=== PATIENT | female | born 1965 | race Two or more races ===

== ENCOUNTER 2024-11-13 17:25 | Emergency (ER) | payer MEDICAID ==
[~2024-11-13] VITALS: Ht 154.9 cm; Wt 95.9 kg
[2024-11-13 17:28] VITALS: BP 140/92; RESP 18; TEMP 98.7; O2SAT 98
--- NOTE | 2024-11-13 17:30 | ECG ---
[facility] Test Date: 2024-11-13 Test Time: 17:29:00 Pat Name: NURY BENITEZ Department: ED Room: Gender: F Garment Folder: juan : 1965 Requested By: LONNY BOOGIE Order Number: [id number] Reading MD: Ramirez Price Measurements Intervals [place] Rate: 110 P: 54 NH: 152 QRS: 23 QRSD: 84 T: -1 QT: 315 QTc: 427 Interpretive Statements Sinus tachycardia Probable left atrial enlargement Borderline T abnormalities, anterior leads Electronically Signed On 11-18-2024 17:58:28 PDT by Ramirez Price Please click the below link to view image of tracing.
--- NOTE | 2024-11-13 17:40 | ED.PDOC ---
HPI Comments This is a 59 year-old female who presents to the ED with a chief complaint of chest pain with associated SOB, left leg and right ankle soreness for X1 day. Patient states chest pain is a 7/10, non-radiating, with the associated feeling of "pressure". Patient denies this happening before. Patient has no further complaints at this time and otherwise denies further associated symptoms of cough, dizziness, blurred vision, N/V/D, fever, or chills. Chief Complaint: Chest Pain Time Seen by MD: 17:43 Reviewed Notes: Nurses Notes, Medications, Allergies Allergies: Coded Allergies: NO KNOWN ALLERGIES (Unverified , 11/13/24) Information Source: Patient Mode of Arrival: Ambulatory Severity: Moderate Timing: Days (1) Duration: Since onset Radiation: No Radiation Quality: Pressure Associated Signs and Symptoms: SOB, Other (left leg and right ankle soreness ) Past Medical History PAST MEDICAL HISTORY: Denies Surgical History: SERVICE CENTER SPECIALIST History: No Pertinent SERVICE CENTER SPECIALIST History Family History Family History: Family hx of heart aakash, Family hx of HTN Social History Smoker: Non-Smoker Alcohol: Denies ETOH Use Drugs: Denies Drug Use Lives In: Home Constitutional: denies: chills, diaphoresis, fatigue, fever, malaise, sweats, weakness, others EENTM: denies: blurred vision, double vision, ear bleeding, ear discharge, ear drainage, ear pain, ear ringing, eye pain, eye redness, hearing loss, mouth pain, mouth swelling, nasal discharge, nose bleeding, nose congestion, nose pain, photophobia, tearing, throat pain, throat swelling, voice changes, others Respiratory: reports: SOB at rest, shortness of breath, SOB with excertion; denies: cough, hemoptysis, orthopnea, stridor, wheezing, others Cardiovascular: reports: chest pain; denies: dizzy spells, diaphoresis, Dyspnea on exertion, edema, irregular heart beat, left arm pain, lightheadedness, palpitations, PND, syncope, others Gastrointestinal: denies: abdomen distended, abdominal pain, blood streaked bowels, constipated, diarrhea, dysphagia, difficulty swallowing, hematemesis, melena, nausea, poor appetite, poor fluid intake, rectal bleeding, rectal pain, vomiting, others Genitourinary: denies: abnormal vagina bleeding, burning, dyspareunia, dysuria, flank pain, frequency, hematuria, incontinence, pain, , vagina discharge, urgency, others Neurological: denies: dizziness, fainting, headache, left sided numbness, left sided weakness, numbness, paresthesia, pre-existing deficit, right sided numbness, right sided weakness, seizure, speech problems, tingling, tremors, weakness, others Musculoskeletal: reports: others (Left leg swelling, right ankle swelling ); denies: back pain, gout, joint pain, joint swelling, muscle pain, muscle stiffness, neck pain Integumetry: denies: bruises, change in color, change in hair/nails, dryness, laceration, lesions, lumps, rash, wounds, others Allergic/Immunocompromised: denies: Difficulty Healing, Frequent Infections, Hives, Itching, others Hematologic/Lymphatic: denies: anemia, blood clots, easy bleeding, easy bruising, swollen glands, others Endocrine: denies: excessive hunger, excessive sweating, excessive thirst, excessive urination, flushing, intolerance to cold, intolerance to heat, unexp lained weight gain, unexplained weight loss, others Psychiatric: denies: anxiety, bipolar disorder, depression, hopeless, panic disorder, schizophrenia, sleepless, suicidal, others All Other Systems: Reviewed and Negative Physical Exam General Appearance: Moderate Distress HEENT: Normal ENT Inspection, Pharynx Normal, TMs Normal Neck: Full Range of Motion, Non-Tender, Normal, Normal Inspection Respiratory: Chest Non-Tender, Lungs Clear, No Accessory Muscle Use, No Respiratory Distress, Normal Breath Sounds Cardiovascular: No Edema, No JVD, No Murmur, No Gallop, Normal Peripheral Pulses, Regular Rate/Rhythm Breast Exam: Deferred Gastrointestinal: No Organomegaly, Non Tender, No Pulsatile Mass, Normal Bowel Sounds, Soft Genitalia: Deferred Pelvic: Deferred Rectal: Deferred Extremities: No calf tenderness, Normal capillary refill, Normal inspection, Normal range of motion, Non-tender, No pedal edema Musculoskeletal : Apperance: Normal 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 Was a procedure done?: No CP Differential Dx Differential Diagnosis: A-fib, Anxiety / Panic Attack Differential Diagnosis: HTN Essential X-Ray, Labs, Meds, VS Vital Signs Date Time Temp Pulse Resp B/P (MAP) Pulse Ox O2 Delivery O2 Flow Rate FiO2 11/13/24 18:20 104 11/13/24 17:54 110 11/13/24 17:29 110 11/13/24 17:28 98.7 107 18 140/92 98 98.7 Lab Test 11/13/24 18:27 Range/Units White Blood Count 4.4 4.4-10.8 10^3/uL Red Blood Count 4.73 4.0-5.20 10^6/uL Hemoglobin 14.6 12.2-16.2 g/dL Hematocrit 41.2 36.0-46.0 % Mean Corpuscular Volume 87.0 80.0-100.0 fL Mean Corpuscular Hemoglobin 30.9 28.0-32.0 pg Mean Corpuscular Hemoglobin Concent 35.5 32.0-36.0 g/dL Red Cell Distribution Width 13.1 11.8-14.3 % Platelet Count 278 140-450 10^3/uL Mean Platelet Volume 8.0 6.9-10.8 fL Neutrophils (%) (Auto) 45.4 37.0-80.0 % Lymphocytes (%) (Auto) 42.7 10.0-50.0 % Monocytes (%) (Auto) 9.2 0.0-12.0 % Eosinophils (%) (Auto) 2.1 0.0-7.0 % Basophils (%) (Auto) 0.6 0.0-2.0 % Neutrophils # (Auto) 2.0 1.6-8.6 10 ^3/uL Lymphocytes # (Auto) 1.9 0.4-5.4 10 ^3/uL Monocytes # (Auto) 0.4 0-1.3 10 ^3/uL Eosinophils # (Auto) 0.1 0-0.8 10 ^3/uL Basophils # (Auto) 0 0-0.2 10 ^3/uL Nucleated Red Blood Cells 0.2 % D-Dimer, Quantitative 0.35 0.0-0.49 mg/L FEU Sodium Level 141 136-145 mmol/L Potassium Level 4.1 3.5-5.1 mmol/L Chloride Level 107 98-107 mmol/L Carbon Dioxide Level 25 20-31 mmol/L Anion Gap 9 5-15 Blood Urea Nitrogen 19 9-23 mg/dL Creatinine 0.90 0.550-1.02 mg/dL Glomerular Filtration Rate Calc 74 >90 mL/min BUN/Creatinine Ratio 21.1 H 10.0-20.0 Serum Glucose 95 74-106 mg/dL Calcium Level 9.5 8.7-10.4 mg/dL Troponin I High Sensitivity < 3 L </=34 ng/L Images Reviewed?: Images reviewed and evaluated by me Time of 1ST Reevaluation: 18:16 Reevaluation 1ST: Unchanged Patient Education/Counseling: Diagnosis, Treatment, Prognosis Family Education/Counseling: No Family Present SEPSIS Sepsis Screen Date sepsis recognized/suspect: Nov 13, 2024 Time Sepsis recognized/suspect: 1727 Recent Procedure: No On Antibiotic Therapy: No Respiratory Rate >20: No Heart Rate >90: Yes Temp<36 C (96.8 F) or >38.3 C: No SBP <90 or MAP <65 mmHG: No New Acute Mental Status Change: No Is the patient on CPAP, BIPAP,: No Physician Orders Troponin-I Hs (11/13/24 18:28) Troponin-I Hs (11/13/24 20:28) Electrocardigram (11/13/24 18:28) Electrocardigram (11/13/24 20:28) Chest Two Views Routine (11/13/24 17:57) Lt Lower Dvt (11/13/24 17:57) Vital Signs Date Time Temp Pulse Resp B/P (MAP) Pulse Ox O2 Delivery O2 Flow Rate FiO2 11/13/24 18:20 104 11/13/24 17:54 110 11/13/24 17:29 110 11/13/24 17:28 98.7 107 18 140/92 98 98.7 Laboratory Tests Test 11/13/24 18:27 White Blood Count 4.4 10^3/uL (4.4-10.8) Departure 1 Departure Time of Disposition: 19:45 Impression: Primary Impression: Acute coronary syndrome Disposition: 09 ADMITTED INPATIENT Admit to: [facility] Condition: Fair Critical Care Note Critical Care Time?: Yes (35 min-critical care time only) Stability Stability form required: Yes Unstable for transfer: Telemetry monitoring (Telemetry monitoring required), ED Physician Assesment (Clinical assesment) Heart Score Heart Score: Heart Score Response (Comments) Value History Slightly Suspicious 0 EKG Repolarization Disturb 1 Age 45-64 1 Risk Factors 1 or 2 risk factors 1 Troponin Normal limit 0 Total 3 I personally scribed for MARC ISBELL MD ([email or web address]) on 11/13/24 at 17:40. Elec tronically submitted by Nakia Fair ([email or web address]). I personally scribed for MARC ISBELL MD ([email or web address]) on 11/13/24 at 17:54. E lectronically submitted by Nakia Fair ([email or web address]). MARC ISBELL MD Nov 13, 2024 17:40
[2024-11-13 18:20] VITALS: PULSE 104
--- NOTE | 2024-11-13 18:25 | DVH ---
CHEST RADIOGRAPH Indication: pain Technique: Single frontal view of the chest was obtained Comparison: None FINDINGS: Lines and Tubes: None Lungs: No focal consolidation. Pleura: No effusion. No pneumothorax. Cardiomediastinal contours: Unremarkable Bones: No acute osseous abnormality. IMPRESSION: 1. No acute cardiopulmonary disease.
[2024-11-13 18:39] LABS: Hematocrit 41.2 % (36.0-46.0); Hemoglobin 14.6 g/dL (12.2-16.2); Mean Corpuscular Hemoglobin 30.9 pg (28.0-32.0); Mean Corpuscular Volume 87.0 fL (80.0-100.0); Nucleated Red Blood Cells % 0.2 %
[2024-11-13 18:45] LABS: Chloride 107 mmol/L (98-107); Potassium 4.1 mmol/L (3.5-5.1); Sodium 141 mmol/L (136-145)
[2024-11-13 18:46] LABS: Anion Gap 9 (5-15); Calcium 9.5 mg/dL (8.7-10.4); Carbon Dioxide 25 mmol/L (20-31)
[2024-11-13 18:51] LABS: BUN/Creatinine Ratio 21.1 (10.0-20.0); Blood Urea Nitrogen 19 mg/dL (9-23); Glucose 95 mg/dL (74-106)
--- NOTE | 2024-11-13 20:11 | DVH ---
LEFT lower extremity venous duplex Clinical History: pain Comparison: None Technique: Duplex Doppler evaluation of the deep venous systems of LEFT lower extremities from the common femora l veins to the popliteal veins including color Doppler and spectral/pulsed waveform analysis was perf ormed. Findings: LEFT SIDE: The common femoral vein demonstrates appropriate compressibility and waveform variability. There is compressibility/patency of the great saphenous vein at the proximal thigh. The femoral vein demonstrates appropriate compressibility and waveform variability. The deep femoral vein demonstrates appropriate compressibility and waveform variability. The popliteal vein demonstrates appropriate compressibility and waveform variability. There is normal compressibility at the tibioperoneal trunk. Impression: 1. No left femoropopliteal venous thrombosis.
[2024-11-13 20:43] LABS: Urine Protein, UAD Negative (Negative)
[2024-11-14] MEDS ORDERED: MORPHINE SULFATE INJ 2 MG/ml SYRG IV PRN
[2024-11-14] MEDS ORDERED: NITROGLYCERIN 0.4 MG SL TAB SL PRN
== END 2024-11-13 20:00 | disposition left against medical advice (07) ==
LOC: ER 17:25 → OVERFLOW 20:00 → UNDOADMIN 23:58 → OVERFLOW 23:58 → UNDODISIN 11-14 00:10
DX: I24.9 Acute ischemic heart disease, unspecified (principal); Z98.890 Other specified postprocedural states
CPT/HCPCS: 36415; 71046; 80048; 81001; 84484; 85025; 85379; 93005; 93971; 99291; G0378

== ENCOUNTER 2024-11-18 15:59 | Inpatient (IN) | payer MEDICAID ==
[~2024-11-18] VITALS: Ht 154.9 cm; Wt 95.6 kg
--- NOTE | 2024-11-18 16:07 | ECG ---
[facility] Test Date: 2024-11-18 Test Time: 16:04:45 Pat Name: NURY BENITEZ Department: Room: Gender: F [employer] Attendant: AKIRA : 1965 Requested By: BOLIVAR BOOGIE Order Number: [id number] Reading MD: Ramirez Price Measurements Intervals [place] Rate: 96 P: 66 NV: 154 QRS: 46 QRSD: 93 T: -5 QT: 349 QTc: 441 Interpretive Statements Sinus rhythm Low voltage, precordial leads Borderline abnrm T, anterolateral leads Baseline wander in lead(s) I,II,III,aVR,aVF,V4 Electronically Signed On 11-18-2024 18:28:48 PDT by Ramirez Price Please click the below link to view image of tracing.
--- NOTE | 2024-11-18 16:13 | ED.PDOC ---
HPI Comments 59 y/o F, with no prior medical history presents to the ED for CC of chest pain. Patient states, she has been experiencing substernal pressure like chest pain x4days. Patient reports, she was seen at [facility] for SS on (11/13/24) and was admitted; patient states she later AMA'd d/t "there was no horse race timer to see me". Patient relays, that she has an appointment an appointment set with her PCP for 11/22/24 however, symptoms have not yet ceased and would like to be worked up. Patient denies shortness of breath, cough, palpitations, dizziness, or headache. No other symptoms or modifying factors present at this time. Chief Complaint: Chest Pain Time Seen by MD: 16:10 Reviewed Notes: Nurses Notes, Medications, Allergies Allergies: Coded Allergies: NO KNOWN ALLERGIES (Unverified , 11/13/24) Information Source: Patient Mode of Arrival: Ambulatory Severity: Moderate Timing: Days Duration: Since onset Prehospital treatment: None Location: Substernal Radiation: No Radiation Quality: Pressure Onset: At Rest Cardiac Risk Factors: None PE Risk Factors: None History of: None Modifying Factors: Nothing Associated Signs and Symptoms: None Past Medical History PAST MEDICAL HISTORY: Denies Surgical History: PRESCHOOL ADVISER History: No Pertinent PRESCHOOL ADVISER History Family History Family History: Family hx of heart aakash, Family hx of HTN Social History Smoker: Non-Smoker Alcohol: Denies ETOH Use Drugs: Denies Drug Use Lives In: Home Constitutional: denies: chills, diaphoresis, fatigue, fever, malaise, sweats, w eakness, others EENTM: denies: blurred vision, double vision, ear bleeding, ear discharge, ear drainage, ear pain, ear ringing, eye pain, eye redness, hearing loss, mouth pain, mouth swelling, nasal discharge, nose bleeding, nose congestion, nose pain, photophobia, tearing, throat pain, throat swelling, voice changes, others Respiratory: denies: cough, hemoptysis, orthopnea, SOB at rest, shortness of breath, SOB with excertion, stridor, wheezing, others Cardiovascular: reports: chest pain; denies: dizzy spells, diaphoresis, Dyspnea on exertion, edema, irregular heart beat, left arm pain, lightheadedness, palpitations, PND, syncope, others Gastrointestinal: denies: abdomen distended, abdominal pain, blood streaked bowels, constipated, diarrhea, dysphagia, difficulty swallowing, hematemesis, melena, nausea, poor appetite, poor fluid intake, rectal bleeding, rectal pain, vomiting, others Genitourinary: denies: abnormal vagina bleeding, burning, dyspareunia, dysuria, flank pain, frequency, hematuria, incontinence, pain, , vagina discharge, urgency, others Neurological: denies: dizziness, fainting, headache, left sided numbness, left sided weakness, numbness, paresthesia, pre-existing deficit, right sided numbness, right sided weakness, seizure, speech problems, tingling, tremors, weakness, others Musculoskeletal: denies: back pain, gout, joint pain, joint swelling, muscle pain, muscle stiffness, neck pain, others Integumetry: denies: bruises, change in color, change in hair/nails, dryness, laceration, lesions, lumps, rash, wounds, others Allergic/Immunocompromised: denies: Difficulty Healing, Frequent Infections, Hives, Itching, others Hematologic/Lymphatic: denies: anemia, blood clots, easy bleeding, easy bruising, swollen glands, others Endocrine: denies: excessive hunger, excessive sweating, excessive thirst, excessive urination, flushing, intolerance to cold, intolerance to heat, unexplained weight gain, unexplained weight loss, others Psychiatric: denies: anxiety, bipolar disorder, depression, hopeless, panic disorder, schizophrenia, sleepless, suicidal, others All Other Systems: Reviewed and Negative Physical Exam General Appearance: No Apparent Distress, Normal HEENT: Normal ENT Inspection, Pharynx Normal Neck: Full Range of Motion, Non-Tender, Normal, Normal Inspection Respiratory: Chest Non-Tender, Lungs Clear, No Accessory Muscle Use, No Respiratory Distress, Normal Breath Sounds Cardiovascular: No Edema, No Murmur, No Gallop, Normal Peripheral Pulses, Regu lar Rate/Rhythm Breast Exam: Deferred Gastrointestinal: No Organomegaly, Non Tender, No Pulsatile Mass, Normal Bowel Sounds, Soft Genitalia: Deferred Pelvic: Deferred Rectal: Deferred Extremities: No calf tenderness, Normal capillary refill, Normal inspection, Normal range of motion, Non-tender, No pedal edema Musculoskeletal : Apperance: Normal 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 Was a procedure done?: No CP Differential Dx Differential Diagnosis: Angina Differential Diagnosis: Chest Wall Pain, Costochondritis X-Ray, Labs, Meds, VS Vital Signs Date Time Temp Pulse Resp B/P (MAP) Pulse Ox O2 Delivery O2 Flow Rate FiO2 11/18/24 17:05 75 11/18/24 16:04 96 11/18/24 16:01 98.0 98 18 146/101 98 98.0 Lab Test 11/18/24 16:46 Range/Units White Blood Count 4.4 4.4-10.8 10^3/uL Red Blood Count 4.46 4.0-5.20 10^6/uL Hemoglobin 13.5 12.2-16.2 g/dL Hematocrit 38.9 36.0-46.0 % Mean Corpuscular Volume 87.2 80.0-100.0 fL Mean Corpuscular Hemoglobin 30.1 28.0-32.0 pg Mean Corpuscular Hemoglobin Concent 34.6 32.0-36.0 g/dL Red Cell Distribution Width 12.9 11.8-14.3 % Platelet Count 259 140-450 10^3/uL Mean Platelet Volume 7.8 6.9-10.8 fL Neutrophils (%) (Auto) 42.3 37.0-80.0 % Lymphocytes (%) (Auto) 45.8 10.0-50.0 % Monocytes (%) (Auto) 8.6 0.0-12.0 % Eosinophils (%) (Auto) 2.8 0.0-7.0 % Basophils (%) (Auto) 0.5 0.0-2.0 % Neutrophils # (Auto) 1.9 1.6-8.6 10 ^3/uL Lymphocytes # (Auto) 2.0 0.4-5.4 10 ^3/uL Monocytes # (Auto) 0.4 0-1.3 10 ^3/uL Eosinophils # (Auto) 0.1 0-0.8 10 ^3/uL Basophils # (Auto) 0 0-0.2 10 ^3/uL Nucleated Red Blood Cells 0.1 % Sodium Level 142 136-145 mmol/L Potassium Level 4.8 3.5-5.1 mmol/L Chloride Level 106 98-107 mmol/L Carbon Dioxide Level 29 20-31 mmol/L Anion Gap 7 5-15 Blood Urea Nitrogen 20 9-23 mg/dL Creatinine 0.90 0.550-1.02 mg/dL Glomerular Filtration Rate Calc 74 >90 mL/min BUN/Creatinine Ratio 22.2 H 10.0-20.0 Serum Glucose 94 74-106 mg/dL Calcium Level 9.5 8.7-10.4 mg/dL Troponin I High Sensitivity < 3 L </=34 ng/L [facility] [id number] [place] [address] Ph: [phone] DIAGNOSTIC IMAGING Diagnostic Imaging Report : [id number] Signed PATIENT: NURY BENITEZ ACCT: [id number] UNIT: [id number] : 1965 LOC: ER ROOM / BED: / AGE / SEX: 59 / F ADM STATUS: REG ER SERVICE 1611 ORDERING PHYSICIAN: APRIL SWAIN MD PROCEDURE(s): CXRP - CHEST PORTABLE REASON: chest pain ORDER NUMBER(s): [id number], ACCESSION NUMBER(s): [id number] EXAM: XY CHEST PORTABLE HISTORY: chest pain COMPARISON: XY CHEST TWO VIEWS ROUTINE on DOS: 11/13/24 TECHNIQUE: PA upright view of the chest was performed. FINDINGS: No pneumothorax, consolidative infiltrates, or pulmonary edema. The heart is mildly enlarged. There is thoracic degenerative disc disease. There is mild thoracic dextroscoliosis. IMPRESSION: Cardiomegaly without evidence of acute intrathoracic process. ATED BY: AAYUSH ESTEVEZ MD DICTATED DATE/TIME: 11/18/241632 SIGNED BY: AAYUSH ESTEVEZ MD SIGNED DATE/TIME: 11/18/24 163 CC: Time of 1ST Reevaluation: 16:40 Reevaluation 1ST: Unchanged Patient Education/Counseling: Diagnosis, Treatment Family Education/Counseling: No Family Present SEPSIS Sepsis Screen Date sepsis recognized/suspect: Nov 18, 2024 Time Sepsis recognized/suspect: 1603 Recent Procedure: No On Antibiotic Therapy: No Respiratory Rate >20: No Heart Rate >90: Yes Temp<36 C (96.8 F) or >38.3 C: No SBP <90 or MAP <65 mmHG: No New Acute Mental Status Change: No Is the patient on CPAP, BIPAP,: No Physician Orders Troponin-I Hs (11/18/24 17:05) Troponin-I Hs (11/18/24 19:05) Electrocardigram (11/18/24 17:05) Electrocardigram (11/18/24 19:05) Chest Portable (11/18/24 16:11) Vital Signs Date Time Temp Pulse Resp B/P (MAP) Pulse Ox O2 Delivery O2 Flow Rate FiO2 11/18/24 17:05 75 11/18/24 16:04 96 11/18/24 16:01 98.0 98 18 146/101 98 98.0 Laboratory Tests Test 11/18/24 16:46 White Blood Count 4.4 10^3/uL (4.4-10.8) Departure 1 Departure Time of Disposition: 17:50 (Patient presented with chest pain that was concerning for possible STEMI, ACS, PE, Pneumonia, Muscle Strain, COPD, Dissection. Data: 1. I ordered and reviewed the result of at least 3 labs including a CBC, BMP, and Troponin. 2. I independently interpreted the following tests: EKG which shows sinus arrythmia and Chest X-ray which shows benign chest.Risk:This patient has a high risk of morbidity due to further diagnostic testing or treatment and may suffer from an acute cardiac or respiratory disorder. Workup reveals concern for acs and patient should be admitted for further workup and possible expert consultation. ) Impression: Primary Impression: Acute chest pain Disposition: ADMITTED INPATIENT Admit to: Med Surg Condition: Serious Critical Care Note Critical Care Time?: Yes Critical care comment: Acute Chest Pain Authorized and Performed by: April Swain MD Total critical care time: Approximately 37 minutes Due to a high probability of clinically significant, life threatening deterioration, the patient required my highest level of preparedness to intervene emergently and I personally spent this critical care time directly and personally managing the patient. This critical care time included obtaining a history; examining the patient; pulse oximetry; ordering and review of studies; arranging urgent treatment with development of a management plan; evaluation of patient's response to treatment; frequent reassessment; and, discussions with other providers. This critical care time was performed to assess and manage the high probability of imminent, life-threatening deterioration that could result in multi-organ failure. It was exclusive of separately billable procedures and treating other patients and teaching time. Please see my other sections and the rest of the note for further information on patient assessment and treatment. Stability Stability form required: No Heart Score Heart Score: Heart Score Response (Comments) Value History N/A 0 EKG N/A 0 Age N/A 0 Risk Factors N/A 0 Troponin N/A 0 Total 0 I personally scribed for APRIL SWAIN MD ([email or web address]) on 11/18/24 at 16:13. Electronically submitted by Yina Jang ([email or web address]). I personally scribed for APRIL SWAIN MD ([email or web address]) on 11/18/24 at 16:35. Electronically submitted by Yina Jang ([email or web address]). I personally scribed for APRIL SWAIN MD ([email or web address]) on 11/18/24 at 17:23. Electronically submitted by Yina Jang ([email or web address]). APRIL SWAIN MD Nov 18, 2024 16:13
--- NOTE | 2024-11-18 16:35 | DVH ---
EXAM: XY CHEST PORTABLE HISTORY: chest pain COMPARISON: XY CHEST TWO VIEWS ROUTINE on DOS: 11/13/24 TECHNIQUE: PA upright view of the chest was performed. FINDINGS: No pneumothorax, consolidative infiltrates, or pulmonary edema. The heart is mildly enlarged. There i s thoracic degenerative disc disease. There is mild thoracic dextroscoliosis. IMPRESSION: Cardiomegaly without evidence of acute intrathoracic process.
[2024-11-18 16:59] LABS: Hematocrit 38.9 % (36.0-46.0); Hemoglobin 13.5 g/dL (12.2-16.2); Mean Corpuscular Hemoglobin 30.1 pg (28.0-32.0); Mean Corpuscular Volume 87.2 fL (80.0-100.0); Nucleated Red Blood Cells % 0.1 %
[2024-11-18 17:09] LABS: Chloride 106 mmol/L (98-107); Potassium 4.8 mmol/L (3.5-5.1); Sodium 142 mmol/L (136-145)
[2024-11-18 17:10] LABS: Anion Gap 7 (5-15); Carbon Dioxide 29 mmol/L (20-31)
[2024-11-18 17:11] LABS: Calcium 9.5 mg/dL (8.7-10.4)
[2024-11-18 17:15] LABS: Glucose 94 mg/dL (74-106)
[2024-11-18 17:16] LABS: BUN/Creatinine Ratio 22.2 (10.0-20.0); Blood Urea Nitrogen 20 mg/dL (9-23)
[2024-11-18] MEDS ORDERED: MORPHINE SULFATE INJ 2 MG/ml SYRG IV PRN (23:30)
[2024-11-18] MEDS ORDERED: NITROGLYCERIN 0.4 MG SL TAB SL PRN (23:30)
--- NOTE | 2024-11-19 00:17 | DVHHPRES ---
History of Present Illness Resident Creating Document: NURY CHURCHILL RESIDENT History of Present Illness 59-year-old female presents to the hospital with history of chest tightness and anxiety for 1 week. 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 which prompted her to go to the doctor in her office, they sent her to the ER. She was admitted in this hospital last Monday and she left AMA, because she wanted to see a research worker encyclopedia. She takes 81 mg aspirin at home, she reports taking his pain helps her ease the pain. This time again she presented with the same complaints of chest tightness. She does not have any shortness of breath, fever, abdominal pain, nausea, vomiting or any other complaints today Past medical history: Hypertension, diabetes mellitus Past surgical history: No surgery gyn history: With the patient underwent menopause at 52 years age, she did mammogram last year Family history: Mother had liver disease, father had coronary artery disease. Home medications: Aspirin 81 mg, Voltaren gel over her left wrist for pain Allergies: None Smoking: Never Alcohol: Never Drugs: Never PCP: Dr. Laura Fuentes Code status: Full code Review of Systems Cardiovascular: Palpitations Musculoskeletal: other Other Firm nodule over left popliteal fossa Chest tightness Allergies: Coded Allergies: NO KNOWN ALLERGIES (Unverified , 11/13/24) Medications Current Medications Medications Dose Ordered Sig/Maik Route Start Time Stop Time Status Last Admin Dose Admin Nitroglycerin 0.4 mg Q5MINP PRN SL 11/18/24 23:30 Morphine Sulfate 2 mg Q30M PRN IV 11/18/24 23:30 Sodium Chloride 1,000 ml @ 75 mls/hr [id number] IV 11/18/24 23:45 Exam Vital Signs Vital Signs Date Time Temp Pulse Resp B/P (MAP) Pulse Ox O2 Delivery O2 Flow Rate FiO2 11/18/24 19:43 97.8 76 16 117/84 (95) 98 97.8 Labs/Xrays Labs Test 11/18/24 18:39 11/18/24 16:46 Range/Units Troponin I High Sensitivity < 3 L </=34 ng/L White Blood Count 4.4 4.4-10.8 10^3/uL Red Blood Count 4.46 4.0-5.20 10^6/uL Hemoglobin 13.5 12.2-16.2 g/dL Hematocrit 38.9 36.0-46.0 % Mean Corpuscular Volume 87.2 80.0-100.0 fL Mean Corpuscular Hemoglobin 30.1 28.0-32.0 pg Mean Corpuscular Hemoglobin Concent 34.6 32.0-36.0 g/dL Red Cell Distribution Width 12.9 11.8-14.3 % Platelet Count 259 140-450 10^3/uL Mean Platelet Volume 7.8 6.9-10.8 fL Neutrophils (%) (Auto) 42.3 37.0-80.0 % Lymphocytes (%) (Auto) 45.8 10.0-50.0 % Monocytes (%) (Auto) 8.6 0.0-12.0 % Eosinophils (%) (Auto) 2.8 0.0-7.0 % Basophils (%) (Auto) 0.5 0.0-2.0 % Neutrophils # (Auto) 1.9 1.6-8.6 10 ^3/uL Lymphocytes # (Auto) 2.0 0.4-5.4 10 ^3/uL Monocytes # (Auto) 0.4 0-1.3 10 ^3/uL Eosinophils # (Auto) 0.1 0-0.8 10 ^3/uL Basophils # (Auto) 0 0-0.2 10 ^3/uL Nucleated Red Blood Cells 0.1 % Sodium Level 142 136-145 mmol/L Potassium Level 4.8 3.5-5.1 mmol/L Chloride Level 106 98-107 mmol/L Carbon Dioxide Level 29 20-31 mmol/L Anion Gap 7 5-15 Blood Urea Nitrogen 20 9-23 mg/dL Creatinine 0.90 0.550-1.02 mg/dL Glomerular Filtration Rate Calc 74 >90 mL/min BUN/Creatinine Ratio 22.2 H 10.0-20.0 Serum Glucose 94 74-106 mg/dL Calcium Level 9.5 8.7-10.4 mg/dL SEPSIS Sepsis Screen Date sepsis recognized/suspect: Nov 18, 2024 Time Sepsis recognized/suspect: 1603 Recent Procedure: No On Antibiotic Therapy: No Respiratory Rate >20: No Heart Rate >90: Yes Temp<36 C (96.8 F) or >38.3 C: No SBP <90 or MAP <65 mmHG: No New Acute Mental Status Change: No Is the patient on CPAP, BIPAP,: No Physician Orders Admit (11/18/24 23:24) Complete Blood Count (11/19/24 04:00) Comprehensive Metabolic Panel (11/19/24 04:00) Cardiac Diet-2gna,Lofat,Lochol (11/19/24 Breakfast) Nitroglycerin Sublingual (Ntrostat Subli (11/18/24 23:30) Morphine Sulfate Injection (11/18/24 23:30) Oxygen By Nasal Cannula (11/18/24 23:24) Stat Ekg For Chest Pain (11/18/24 23:24) Notify Md Of Changes From Base (11/18/24 23:24) Associate Professor Of Automation For 24 Hours (11/18/24 23:24) Emergency Dysrhythmia Protocol (11/18/24 23:24) Rhythm Strips Once Every Shift (11/18/24 23:24) Sodium Chloride 0.9% (11/18/24 23:45) Vital Signs Date Time Temp Pulse Resp B/P (MAP) Pulse Ox O2 Delivery O2 Flow Rate FiO2 11/18/24 19:43 97.8 76 16 117/84 (95) 98 97.8 11/18/24 18:58 75 11/18/24 17:05 75 Laboratory Tests Test 11/18/24 16:46 White Blood Count 4.4 10^3/uL (4.4-10.8) Assessment/Plan Assessment/Plan Chest pain rule out ACS Chest tightness due to anxiety attacks EKG:Sinus rhythm Low voltage, precordial leads Borderline abnrm T, anterolateral leads Baseline wander in lead(s) I,II,III,aVR,aVF,V4 Troponin negative CXR: Cardiomegaly without evidence of acute intrathoracic process. -nitroglycerin -Morphine -continue home medication aspirin 81 mg GI prophylaxis: Not indicated DVT prophylaxis: Not indicated Diet: Cardiac Goals of care discussed with the patient for more than 27 minutes: Full code status Case discussed with Dr. Prieto, patient and RN Plan discussed with: Patient, Other (RN) My Orders Orders - NURY CHURCHILL RESIDENT Procedure Category Date Status Time Admit ADMIT 11/18/24 Transmitted 23:24 Complete Blood Count LAB 11/19/24 Logged 04:00 Comprehensive LAB 11/19/24 Logged Metabolic Panel 04:00 Cardiac DIET 11/19/24 Transmitted Diet-2gna,Lofat,Lochol Breakfast Nitroglycerin [facility] 11/18/24 In Process Sublingual (Ntrostat 23:30 Morphine Sulfate [facility] 11/18/24 In Process Injection 23:30 Oxygen By Nasal RT 11/18/24 Transmitted Cannula 23:24 Stat Ekg For Chest [facility] 11/18/24 In Process Pain 23:24 Notify Md Of Changes [facility] 11/18/24 In Process From Base 23:24 Associate Professor Of Automation For [facility] 11/18/24 In Process 24 Hours 23:24 Emergency Dysrhythmia [facility] 11/18/24 In Process Protocol 23:24 Rhythm Strips Once [facility] 11/18/24 In Process Every Shift 23:24 Date of Service: Nov 18, 2024 Billing Provider: JAKY PRIETO MD Common Visit Codes: 82260-[id number] INP/OBS CARE (HIGH) Secondary Visit Codes: [id number] CARE PLAN 30 MINUTES NURY CHURCHILL RESIDENT Nov 19, 2024 00:17 JAKY PRIETO MD Nov 19, 2024 08:38
[2024-11-19] MEDS: SODIUM CHLORIDE 0.9% 1,000 ML IV SCH (06:15)
[2024-11-19 08:05] LABS: Hematocrit 41.8 % (36.0-46.0); Hemoglobin 14.6 g/dL (12.2-16.2); Mean Corpuscular Hemoglobin 30.5 pg (28.0-32.0); Mean Corpuscular Volume 87.4 fL (80.0-100.0); Nucleated Red Blood Cells % 0.2 %
[2024-11-19 08:18] LABS: Alanine Aminotransferase 36 U/L (7-40); Alkaline Phosphatase 74 U/L (46-116); Anion Gap 9 (5-15); BUN/Creatinine Ratio 11.5 (10.0-20.0); Bilirubin, Total 0.8 mg/dL (0.2-1.0); Calcium 9.3 mg/dL (8.7-10.4); Carbon Dioxide 25 mmol/L (20-31); Chloride 106 mmol/L (98-107); Glucose 97 mg/dL (74-106); Potassium 3.7 mmol/L (3.5-5.1); Sodium 140 mmol/L (136-145); Total Protein 7.5 g/dL (5.7-8.2)
[2024-11-19 08:19] LABS: Albumin 4.8 g/dL (3.2-4.8); Blood Urea Nitrogen 9 mg/dL (9-23)
[2024-11-19 09:00] VITALS: BP 131/83; PULSE 67; RESP 16; TEMP 97.9; O2SAT 99
[2024-11-19 12:16] VITALS: PULSE 69; RESP 18; O2SAT 96
[2024-11-19 13:00] VITALS: BP 136/87; PULSE 67; RESP 18; TEMP 97.7; O2SAT 97
[2024-11-19] MEDS ORDERED: ERGO1CAP12 PO (14:50)
[2024-11-19] MEDS ORDERED: NAP500T PO (14:50)
[2024-11-19] MEDS ORDERED: CYAN-17 PO (14:50)
[2024-11-19 17:00] VITALS: BP 130/87; PULSE 76; RESP 18; TEMP 97.8; O2SAT 96
--- NOTE | 2024-11-19 17:05 | DVHDSRES ---
Discharge Summary Date of Admission Resident Creating Document: ERASMO ERIC RESIDENT Nov 18, 2024 at 23:24 Date of Discharge: Nov 19, 2024 Admitting Diagnosis Acute Chest Pain Labs/Diagnostic Data: Laboratory Results Test 11/19/24 07:45 11/18/24 18:39 White Blood Count 5.3 10^3/uL (4.4-10.8) Red Blood Count 4.78 10^6/uL (4.0-5.20) Hemoglobin 14.6 g/dL (12.2-16.2) Hematocrit 41.8 % (36.0-46.0) Mean Corpuscular Volume 87.4 fL (80.0-100.0) Mean Corpuscular Hemoglobin 30.5 pg (28.0-32.0) Mean Corpuscular Hemoglobin Concent 34.9 g/dL (32.0-36.0) Red Cell Distribution Width 12.7 % (11.8-14.3) Platelet Count 252 10^3/uL (140-450) Mean Platelet Volume 8.6 fL (6.9-10.8) Neutrophils (%) (Auto) 40.1 % (37.0-80.0) Lymphocytes (%) (Auto) 47.2 % (10.0-50.0) Monocytes (%) (Auto) 8.1 % (0.0-12.0) Eosinophils (%) (Auto) 3.7 % (0.0-7.0) Basophils (%) (Auto) 0.9 % (0.0-2.0) Neutrophils # (Auto) 2.1 10 ^3/uL (1.6-8.6) Lymphocytes # (Auto) 2.5 10 ^3/uL (0.4-5.4) Monocytes # (Auto) 0.4 10 ^3/uL (0-1.3) Eosinophils # (Auto) 0.2 10 ^3/uL (0-0.8) Basophils # (Auto) 0 10 ^3/uL (0-0.2) Nucleated Red Blood Cells 0.2 % Sodium Level 140 mmol/L (136-145) Potassium Level 3.7 mmol/L (3.5-5.1) Chloride Level 106 mmol/L (98-107) Carbon Dioxide Level 25 mmol/L (20-31) Anion Gap 9 (5-15) Blood Urea Nitrogen 9 mg/dL (9-23) Creatinine 0.78 mg/dL (0.550-1.02) Glomerular Filtration Rate Calc 88 mL/min (>90) BUN/Creatinine Ratio 11.5 (10.0-20.0) Serum Glucose 97 mg/dL (74-106) Calcium Level 9.3 mg/dL (8.7-10.4) Total Bilirubin 0.8 mg/dL (0.2-1.0) Aspartate Amino Transferase (AST) 27 U/L (13-40) Alanine Aminotransferase (ALT) 36 U/L (7-40) Alkaline Phosphatase 74 U/L (46-116) Total Protein 7.5 g/dL (5.7-8.2) Albumin 4.8 g/dL (3.2-4.8) Troponin I High Sensitivity < 3 ng/L (</=34) Other Laboratory Tests 11/19/24 07:45 Brief Hx & Hospital Course: Patient is a 59-year-old female with prior medical history of type 2 diabetes and anxiety, who presented to the ED with chief complaint of chest pain. Patient states that she has had intermittent chest pain for the last few months usually associated to periods of high anxiety related to work. She for sudden onset of retrosternal chest pain described as pressure-like, intensity of 10/10, associated with shortness of breaths, by pressing on her chest, and alleviated by crying. She states she had one episode on Monday, for which she sought medical care but left AMA. Due to presentation of another episode she sought medical care. On evaluation in the ED, she was in mild distress, hypertensive, and referring chest pain. Initial labs show CBC and chemical panel within normal range, troponins negative. Chest x-ray shows cardiomegaly without acute intrathoracic process. She was admitted for further workup and monitoring. she was started on IV fluids, aspirin, and morphine and nitroglycerin p.r.n. for chest pain. EKG was for some form that showed normal sinus rhythm without ST alterations. Echocardiogram was performed in order to evaluate cardiac function. Patient has progressed favorably. On evaluation today she refers resolution of chest pain, and denied shortness of breath, palpitations, anxiety, and weakness. Vitals have been stable. Follow up labs were within normal range. She is considered stable for discharge home with recommendations to follow-up with her PCP at her appointment later this week. Additionally she is being scheduled for an appointment in the discharge clinic for results of echocardiogram. All recommendations have been thoroughly explained to the patient and she states she understands and agrees. General: The patient alert and oriented in person place and time. Patient following commands HEENT: Normocephalic, atraumatic, normal reactive pupils, EOM intact, pink conjunctiva, pink moist mucous membrane Respiratory/pulmonary: bilateral chest expansion, clear lungs bilaterally, vesicular murmurs present in almost all lung andrade, no associated crackles or wheezes. Cardiovascular: Normal RRR, normal S1 and S2 Abdomen: Abdomen nondistended, normal bowel sounds, soft, no pain to palpation in any of the abdominal quadrants, no palpable masses. Extremities: areas of medial aspect of right calf, warm to the touch, pain on palpation, there is no peripheral edema present at the lower extremities. Peripheral pulses 3+ radial right, 3+ radials soft. 3+ dorsalis pedis right. 3+ dorsalis pedis left Skin: No rashes or pruritus Neurological: Intact cranial nerves with no focal neurologic deficits Case discussed with Dr. Wallace Goals of discussed with the patient for over 35 minutes. Operations or Procedures EXAM: XY CHEST PORTABLE HISTORY: chest pain COMPARISON: XY CHEST TWO VIEWS ROUTINE on DOS: 11/13/24 TECHNIQUE: PA upright view of the chest was performed. FINDINGS: No pneumothorax, consolidative infiltrates, or pulmonary edema. The heart is mildly enlarged. There is thoracic degenerative disc disease. There is mild thoracic dextroscoliosis. IMPRESSION: Cardiomegaly without evidence of acute intrathoracic process. Condition at Discharge: Stable Final Diagnosis/Problems List Acute Chest Pain, ruled out ACS, likely due to anxiety Hypertension Type 2 diabetes mellitus Morbid obesity Discharge Disposition: Home Discharge Instruct/Medications Diet: Consistent carbohydrate Activity: No Restrictions, As Tolerated Follow Up/Referral: Follow up with PCP in 1 week Follow up in discharge clinic in 1 week Scheduled Ergocalciferol (Vitamin D), 1 CAP PO QWEEKLY, (Reported) Naproxen (Naprosyn Tablet), 1 TAB PO BID, (Reported) Miscellaneous Medications Cyanocobalamin (B12), 1,000 MCG PO, (Reported) Discharge Statement: "Patient was advised to return to the ER or call 911 if any headaches, dizziness, shortness of breath, chest pain, abdominal pain, bleeding, fevers, or worsening of medical condition. Patient was counseled about treatment plan, medications, possible side effects, patientverbalized understanding. All questions were answered to the best of my ability. This discharge took greater then 30 minutes in planning, reviewing documentation, counseling the patient, and discussing with other team members." ASSESSMENT ASSESSMENT Assessment Acute Chest Pain, ruled out ACS, likely due to anxiety Hypertension Type 2 diabetes mellitus Morbid obesity ERASMO ERIC RESIDENT Nov 19, 2024 17:05
[2024-11-19 17:11] VITALS: BP 130/87; PULSE 76; RESP 18; TEMP 97.8; O2SAT 96
--- NOTE | 2024-11-19 19:24 | DVHSR ---
APPROVED REPORT EXAM: Two-dimensional and M-mode echocardiogram with Doppler and color Doppler. Blood Pressure: 119/79 mmHg INDICATION Chest Pain RISK FACTORS Obesity: Height: 5'1", Weight: 211 DIMENSIONS LVDd4.4 (3.8-5.7cm)LA (2D)3.6 (1.9-4.0cm)Aortic Root3.2 (2.0-3.7cm) LVDs3.0 (2.5-4.0cm)LA (MM) (1.9-4.0cm)Aortic Cusp Exc1.9 (1.5-2.0cm) EF (%) 60.0 (55-70%)Rt. Atrium3.9 (1.9-4.0cm)Asc. Aorta cm IVSd1.1 (0.7-1.1cm)RV (D) (1.8-2.4cm) PWd1.1 (0.7-1.1cm) Mitral Valve MitralMitral Stenosis E wave0.56m/sMV Mean GR.mmHg A wave1.03m/sMV Peak GR.mmHg E/A ratio0.52D MVAcm2 DECEL [id number] 1/2 Timems Aortic Valve Aortic ValveAortic Stenosis V10.78m/Stacy Mean GR.3mmHg V21.30m/Stacy Peak GR.7mmHg LVOT Diameter1.9 (1.8-2.4cm)Doppler AVA1.70cm2 Pulmonic Valve V20.87m/s Tricuspid Valve TR Velocity2.59m/s [id number] Other Information Technically limited study due to body habitus. Conclusion NORMAL LV EF AND IS 65% NORMAL VALVES NORMAL RV FUNCTION NORMALRVSP AND IS 30 MM OF HG NO EFFUSION
--- NOTE | 2024-11-20 18:51 | ECG ---
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
--- NOTE | 2024-11-21 08:42 | ECG ---
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
--- NOTE | 2024-11-21 13:01 | ECG ---
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
== END 2024-11-19 17:45 | disposition home or self-care (01) | DRG 756 ==
LOC: ER 15:59 → OVERFLOW 23:24
PROVIDERS: ADMIT Internal Medicine Geriatric Medicine; ATTEND Emergency Medicine
DX: F41.9 Anxiety disorder, unspecified (principal); E11.9 Type 2 diabetes mellitus without complications; E66.01 Morbid (severe) obesity due to excess calories; I10 Essential (primary) hypertension; Z53.29 Procedure and treatment not carried out because of patient's decision for other reasons; Z68.39 Body mass index [BMI] 39.0-39.9, adult; Z82.49 Family history of ischemic heart disease and other diseases of the circulatory system
CPT/HCPCS: 36415; 71045; 80048; 80053; 84484; 85025; 93005; 93306; 99291; G0378